=== PATIENT | female | born 1965 | race Caucasian/White ===

== ENCOUNTER → 2016-10-19 | Outpatient (CLI) | payer OTHER ==
[2016-10-19 13:20] LABS: THYROID STIMULATING HORMONE 2.42 uIu/ml (0.300-4.500)
== END | disposition home or self-care (01) ==
LOC: C.LAB1850 11:33
PROVIDERS: ATTEND Physician Assistant
DX: E03.9 Hypothyroidism, unspecified (principal)

== ENCOUNTER → 2017-05-25 | Outpatient (CLI) | payer OTHER ==
--- NOTE | 2017-05-25 09:51 | DIAGNOSTIC IMAGING REPORT ---
Thyroid ultrasonography CLINICAL HISTORY: E04.2 Multiple thyroid [id number] COMPARISON STUDY: No previous studies for comparison. FINDINGS: The thyroid gland appears inhomogeneous. The right lobe measures 41 x 14 x 16 mm. There is a mid pole cystic nodule measuring 7 x 5 x 3 mm. The left lobe measures 37 x 11 x 15 mm. There are several small nodules the largest of which is a solid circumscribed wider than tall 7 x 5 x 5 mm nodule. IMPRESSION: Heterogeneous multinodular thyroid gland. None of the nodules meet biopsy criteria. Electronically signed by: Johnson Browning M.D. 05/25/2017 9:49 AM Dictated Date/Time: 05/25/2017 9:47 AM
== END | disposition home or self-care (01) ==
LOC: C.ULTR 08:43
PROVIDERS: ATTEND Physician Assistant
DX: E04.2 Nontoxic multinodular goiter (principal)

== ENCOUNTER → 2017-05-25 | Outpatient (CLI) | payer OTHER | END | disposition home or self-care (01) | LOC: C.LAB1850 10:03 | PROVIDERS: ATTEND Physician Assistant | DX: R73.01 Impaired fasting glucose (principal) ==